=== PATIENT | male | born 1975 | race Caucasian/White ===

== ENCOUNTER 2018-08-16 12:54 | Emergency (ER) | payer OTHER ==
[~2018-08-16] VITALS: Ht 172.7 cm; Wt 77.1 kg
[~2018-08-16 12:54] MED LIST: ACETAMINOPHEN-1 EAC1 PO; BACTRIM DS TAB1 EACH PO; BUSPIRONE HCL10 MG PO; HYDROCODONE-AP1 EAC6 PO; IBUPROFEN 800800 M1 PO; KEFLEX500 MG PO; PENICILLIN V P500 MG PO; PHENERGAN 25 MG25 M1 PO; XANAX 0.25 MG0.25 MG PO; XANAX 0.5 MG0.5 MG PO; ZOFRAN ODT4 M1 PO
[2018-08-16 13:23] LABS: ABSOLUTE BASOPHILS 0.1 thou/uL (0.0-0.2); ABSOLUTE EOSINOPHILS 0.2 thou/uL (0.0-0.7); ABSOLUTE MONOCYTES 0.7 thou/uL (0.0-1.2); ABSOLUTE NEUTROPHILS 2.8 thou/uL (1.6-8.1); BASOPHILS 1.3 %; EOSINOPHILS 3.2 %; HEMATOCRIT 39.6 % (42.0-52.0); HEMOGLOBIN 12.4 gm/dL (14.0-18.0); LYMPHOCYTES 34.5 %; MCH 20.1 pg (26.0-34.0); MCHC 31.4 g/dL (28.0-37.0); MONOCYTES 12.2 %; MPV 9.8 fl. (7.2-11.1); NUCLEATED RBCS 0 /100WBC; PLATELET COUNT* 283 thou/uL (150-400); POLYS 48.8 %; RDW-CV 15.9 % (10.5-14.5); WBC 5.8 thou/uL (4.0-11.0)
[2018-08-16 13:32] LABS: ANION GAP 6 mmol/L (7-16); BUN 15 mg/dL (7-18); CALCIUM 8.7 mg/dL (8.5-10.1); CHLORIDE 104 mmol/L (98-107); CO2 30 mmol/L (21-32); GLUCOSE 104 mg/dL (70-99); SODIUM 140 mmol/L (136-145)
[2018-08-16 13:41] LABS: PLATELET ESTIMATE ADEQUATE
[2018-08-16 13:42] LABS: ANISOCYTOSIS 1+; MICROCYTES 1+
[2018-08-16 13:43] LABS: ALBUMIN 3.7 g/dL (3.4-5.0); ALKALINE PHOSPHATASE 59 U/L (46-116); NT-PRO BRAIN NAT PEPTIDE 30 pg/mL (<300); SGOT 60 U/L (15-37); SGPT 111 U/L (30-65); TOTAL BILIRUBIN 1.1 mg/dL (<0.1-1.0); TOTAL PROTEIN 7.2 g/dL (6.4-8.2); TROPONIN-I LEVEL <0.06 ng/mL (<0.06)
[2018-08-16] MEDS ORDERED: XANAX 0.5 MG0.5 M1 PO (13:49)
[2018-08-16] MEDS ORDERED: BUSPIRONE HCL10 MG PO (13:49)
[2018-08-16 14:14] VITALS: BP 120/75
--- NOTE | 2018-08-16 17:15 | EKG ---
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
== END 2018-08-16 14:14 | disposition home or self-care (01) ==
LOC: M.ERS 12:54
PROVIDERS: Emergency Medicine
DX: F41.9 Anxiety disorder, unspecified (principal); I10 Essential (primary) hypertension; Z88.6 Allergy status to analgesic agent